=== PATIENT | male | born 2000 | race Caucasian/White ===

== ENCOUNTER 2024-08-22 08:45 | Emergency (ER) | payer MEDICAID ==
[~2024-08-22] VITALS: Ht 182.9 cm; Wt 100.0 kg
[2024-08-22 08:47] VITALS: O2SAT 96
[2024-08-22 09:10] VITALS: BP 114/52; PULSE 82; RESP 18; TEMP 37; O2SAT 94
[2024-08-22 09:30] LABS: BASOPHILS % 0.2 % (0.0-2.0); EOSINOPHILS % 2.3 % (0.0-5.0); HEMATOCRIT. 43.8 % (42.0-52.0); HEMOGLOBIN. 14.8 g/dL (14.0-18.0); LYMPHOCYTES % 26.7 % (20.0-50.0); MEAN CORPUSCULAR HEMOGLOBIN 29.1 pg (28.0-32.0); MEAN CORPUSCULAR HGB CONC 33.8 g/dL (31.0-37.0); MEAN PLATELET VOLUME 7.2 fl (7.4-10.4); MONOCYTES % 4.7 % (2.0-8.0); NEUTROPHILS % 66.1 % (40.0-76.0); PLATELET 253 x1000/uL (130-400); RED CELL DISTRIBUTION WIDTH 12.9 % (11.6-14.6); WHITE BLOOD COUNT 7.9 x1000/uL (4.5-11.0)
[2024-08-22 09:42] LABS: CHLORIDE 104 mEq/L (98-107); SODIUM 138 mEq/L (136-145)
[2024-08-22 09:43] LABS: CALCIUM 9.9 mg/dL (8.7-10.4); CARBON DIOXIDE 23 mEq/L (21-32)
[2024-08-22 09:48] LABS: CREATININE 0.9 mg/dL (0.6-1.3); GLUCOSE 170 mg/dL (70-105); UREA NITROGEN BLOOD 9 mg/dL (9-23)
== END 2024-08-22 11:19 | disposition home or self-care (01) ==
LOC: ER 08:45
DX: R56.9 Unspecified convulsions (principal); Z98.890 Other specified postprocedural states
CPT/HCPCS: 36415; 71045; 80048; 80320; 85025; 99284; G0480